=== PATIENT | female | born 1995 | race Caucasian/White ===

== ENCOUNTER 2018-04-20 20:26 | Outpatient (CLI) | END 2018-04-20 22:00 | disposition home or self-care (01) ==

== ENCOUNTER 2018-04-27 10:20 | Inpatient (IN) | END 2018-04-29 14:20 | disposition home or self-care (01) | DRG 807 ==

== ENCOUNTER 2018-06-05 15:45 | Emergency (ER) | payer MEDICAID ==
[~2018-06-05] VITALS: Wt 69.2 kg
[~2018-06-05 15:45] MED LIST: FERR1POW4 MC; IBUP-1542 PO; PREN1TAB17 PO
[2018-06-05 15:52] VITALS: BP 113/58; PULSE 132; RESP 18
[2018-06-05] MEDS ORDERED: AZIT250T PO (16:28)
[2018-06-05] MEDS ORDERED: NPH10OT BOTH EARS (16:28)
[2018-06-05] MEDS ORDERED: HYDR-4011 PO (16:28)
--- NOTE | 2018-06-05 16:30 | ERD ---
ER Documentation Chief Complaint Chief Complaint BILATERAL EAR PAIN X 3 DAYS HPI 22-year-old female with bilateral ear pain for 3 days right greater than left there is some right ear discharge. No fever no loss of hearing. Pain is constant and dull bilaterally. The patient does get occasional water in her ears ROS All systems reviewed and are negative except as per history of present illness. Medications Home Meds Active Scripts Neomycin/Polymyxin/Hydrocort* (Cortisporin* Otic) 10 Ml Susp, 4 DROP BOTH EARS QID for 7 Days, EA Prov:MARY ANNE DIAZ DO 06/05/18 Azithromycin* (Zithromax*) 250 Mg Tablet, 250 MG PO .ZPACK DIRECTED, #6 TAB TAKE 500 MG (2 TABS) THE FIRST DAY THEN 250 MG (1 TAB) DAYS 2-5 Prov:MARY ANNE DIAZ DO 06/05/18 Hydrocodone/Acetaminophen ([place] 5-325 Tablet) 1 Each Tablet, 1 TAB PO Q6H PRN for PAIN, #10 TAB Prov:MARY ANNE DIAZ DO 06/05/18 Ibuprofen* (Ibuprofen*) 600 Mg Tablet, 600 MG PO Q6, #60 TAB 0 Refills Prov:KLAUDIA ZENDEJAS MD 04/28/18 Reported Medications Ferrous Sulfate (Ferrous Sulfate) 1 Gm Powder, 1 GM MC 01/18/13 Vit-Iron Fumarate-FA ( Tablet) 1 Each Tablet, 1 EACH PO 01/18/13 Allergies Allergies: Coded Allergies: No Known Drug Allergies (Verified Allergy, Unknown, 04/27/18) PMhx/Soc History of Surgery: No Anesthesia Reaction: No Hx Neurological Disorder: No Hx Respiratory Disorders: No Hx Cardiac Disorders: Yes (htn) Hx Psychiatric Problems: No Hx Miscellaneous Medical Probl: No Hx Alcohol Use: No Hx Substance Use: No Hx Tobacco Use: Yes FmHx Family History: No coronary disease Physical Exam Vitals Vital Signs Date Temp Pulse Resp B/P (MAP) Pulse Ox O2 O2 Flow FiO2 Time Delivery Rate 06/05/18 101.3 132 18 113/58 99 15:52 (76) Physical Exam Const: No acute distress Head: Atraumatic Eyes: Normal Conjunctiva ENT: Normal External Ears, Nose and Mouth., The right EAC has discharge in the right tympanic membrane is red possible perforations unclear, left TM is also red and bulging no pus Neck: Full range of motion. No meningismus. Resp: Clear to auscultation bilaterally Cardio: Regular rate and rhythm, no murmurs Abd: Soft, non tender, non distended. Normal bowel sounds Skin: No petechiae or rashes Back: No midline or flank tenderness Ext: No cyanosis, or edema Neur: Awake and alert Psych: Normal Mood and Affect Procedures/MDM We will discharge home with Zithromax, Cortisporin otic suspension and [place] Departure Diagnosis: Primary Impression: Otitis externa Otitis externa type: unspecified type Chronicity: acute Laterality: right Qualified Codes: H60.501 - Unspecified acute noninfective otitis externa, right ear Additional Impression: Otitis media Otitis media type: unspecified Laterality: bilateral Qualified Codes: H66.93 - Otitis media, unspecified, bilateral Condition: Stable Patient Instructions: Otitis Media, Abx Tx (Adult), External Ear Infection (Adult) MARY ANNE DIAZ DO Jun 05, 2018 16:30
[2018-06-05] MEDS ORDERED: ACETAMINOPHEN 500 MG TAB PO STA (17:07)
== END 2018-06-05 17:27 | disposition home or self-care (01) ==
LOC: E/R 15:45
DX: H60.501 Unspecified acute noninfective otitis externa, right ear (principal); I10 Essential (primary) hypertension; H66.93 Otitis media, unspecified, bilateral; Z87.891 Personal history of nicotine dependence
CPT/HCPCS: 99283

== ENCOUNTER 2018-06-12 18:51 | Inpatient (IN) | payer MEDICAID ==
[~2018-06-12] VITALS: Ht 157.5 cm; Wt 69.1 kg
[~2018-06-12 18:51] MED LIST changes: +AZIT250T PO; +HYDR-4011 PO; +NPH10OT BOTH EARS
[2018-06-12 19:13] VITALS: Ht 157.5 cm; Wt 69.1 kg
[2018-06-12] MEDS ORDERED: LIDOCAINE/MYLANTA 40 ML BTL PO STA (20:41)
[2018-06-12] MEDS ORDERED: BELLADONNA/PHENOBARBITAL TAB PO STA (20:41)
[2018-06-12] MEDS ORDERED: ONDANSETRON 4 MG INJ IV PRN (23:30)
[2018-06-12] MEDS ORDERED: ACETAMINOPHEN 325 MG TAB PO PRN (23:30)
--- NOTE | 2018-06-12 23:31 | ERD ---
ER Documentation Chief Complaint Chief Complaint upper ab pain since last nite (KRYSTAL SANTOS PA-C) HPI 27-year-old female presenting with epigastric pain times 1 day. Patient had a baby 6 weeks ago. She denies any chest pain or shortness of breath. Denies fever. Had a few episodes of vomiting earlier today. States that her pain is primarily bilateral sides under the rib cage and is continuous. She took [place] at home no alleviation of symptoms. Denies medical problems. NKDA. Surgical history denies. Social history denies (KRYSTAL SANTOS PA-C) Patient correction patient is a 22-year-old female (EDGAR ROMERO DO) ROS All systems reviewed and are negative except as per history of present illness. (KRYSTAL SANTOS PA-C) Medications Home Meds Active Scripts Docusate Sodium* (Colace*) 100 Mg Capsule, 100 MG PO BID, #60 CAP Prov:KELLY BUSTOS V. BULB TESTER 06/17/18 Hydrocodone/Acetaminophen ([place] 5-325 Tablet) 1 Each Tablet, 1 TAB PO Q6H PRN for PAIN, #10 TAB Prov:MARY ANNE DIAZ DO 06/05/18 Reported Medications Vit-Iron Fumarate-FA ( Tablet) 1 Each Tablet, 1 EACH PO 01/18/13 Discontinued Reported Medications Ferrous Sulfate (Ferrous Sulfate) 1 Gm Powder, 1 GM MC 01/18/13 Discontinued Scripts Neomycin/Polymyxin/Hydrocort* (Cortisporin* Otic) 10 Ml Susp, 4 DROP BOTH EARS QID for 7 Days, EA Prov:MARY ANNE DIAZ DO 06/05/18 Azithromycin* (Zithromax*) 250 Mg Tablet, 250 MG PO .ZPACK DIRECTED, #6 TAB TAKE 500 MG (2 TABS) THE FIRST DAY THEN 250 MG (1 TAB) DAYS 2-5 Prov:MARY ANNE DIAZ DO 06/05/18 Ibuprofen* (Ibuprofen*) 600 Mg Tablet, 600 MG PO Q6, #60 TAB 0 Refills Prov:KLAUDIA ZENDEJAS MD 04/28/18 Allergies Allergies: Coded Allergies: No Known Drug Allergies (Verified Allergy, Unknown, 04/27/18) PMhx/Soc History of Surgery: Yes (csection X1, natural 1) Anesthesia Reaction: No Hx Neurological Disorder: No Hx Respiratory Disorders: No Hx Cardiac Disorders: Yes (htn) Hx Psychiatric Problems: No Hx Miscellaneous Medical Probl: No Hx Alcohol Use: No Hx Substance Use: No Hx Tobacco Use: No (KRYSTAL SANTOS PA-C) FmHx Family History: No diabetes, No coronary disease, No other (KRYSTAL SANTOS PA-C) Physical Exam Physical Exam GENERAL: The patient is well-appearing, well-nourished, in no acute distress HEENT: Atraumatic. Conjunctivae are pink. Pupils equal, round, and reactive to light. There is no scleral icterus. Tympanic membranes clear bilaterally. Oropharynx clear. NECK: C-spine is soft and supple. There is no meningismus. There is no cervical lymphadenopathy. CHEST: Clear to auscultation bilaterally. There are no rales, wheezes or rhonchi. HEART: Regular rate and rhythm. No murmurs, clicks, rubs or gallops. No S3 or S4. ABDOMEN:Soft, nontender and nondistended. Good bowel sounds. No rebound or gu arding. No gross peritonitis. No gross organomegaly or masses. Positive Cross sign, No McBurney point tenderness. (KRYSTAL SANTOS PA-C) Result Diagram: 06/16/18 0450 06/16/18 0450 Results 24 hrs Laboratory Tests Test 06/12/18 20:51 06/12/18 20:55 POC Beta HCG, Qualitative NEGATIVE White Blood Count 13.4 10^3/ul Red Blood Count 5.08 10^6/ul Hemoglobin 12.8 g/dl Hematocrit 39.8 % Mean Corpuscular Volume 78.3 fl Mean Corpuscular Hemoglobin 25.2 pg Mean Corpuscular Hemoglobin Concent 32.2 g/dl Red Cell Distribution Width 15.9 % Platelet Count 691 10^3/UL Mean Platelet Volume 8.7 fl Immature Granulocytes % 0.400 % Neutrophils % 86.2 % Lymphocytes % 9.5 % Monocytes % 3.5 % Eosinophils % 0.2 % Basophils % 0.2 % Nucleated Red Blood Cells % 0.0 /100WBC Immature Granulocytes # 0.050 10^3/ul Neutrophils # 11.6 10^3/ul Lymphocytes # 1.3 10^3/ul Monocytes # 0.5 10^3/ul Eosinophils # 0.0 10^3/ul Basophils # 0.0 10^3/ul Nucleated Red Blood Cells # 0.0 10^3/ul Pathologist Review (Hematology) YES Urine Color YELLOW Urine Clarity SLIGHTLY CLOUDY Urine pH 5.0 Urine Specific [place] 1.019 Urine Ketones 2+ mg/dL Urine Nitrite NEGATIVE mg/dL Urine Bilirubin NEGATIVE mg/dL Urine Urobilinogen NEGATIVE mg/dL Urine Leukocyte Esterase NEGATIVE Bill/ul Urine Microscopic RBC > 182 /HPF Urine Microscopic WBC 9 /HPF Urine Bacteria FEW /HPF Urine Hemoglobin 3+ mg/dL Urine Glucose NEGATIVE mg/dL Urine Total Protein 1+ mg/dl Sodium Level 138 mmol/L Potassium Level 3.7 mmol/L Chloride Level 100 mmol/L Carbon Dioxide Level 26 mmol/L Anion Gap 12 Blood Urea Nitrogen 4 mg/dl Creatinine 0.44 mg/dl Est Glomerular Filtrat Rate mL/min > 60 mL/min Glucose Level 121 mg/dl Calcium Level 9.3 mg/dl Total Bilirubin 0.0 mg/dl Direct Bilirubin 0.00 mg/dl Indirect Bilirubin 0.0 mg/dl Aspartate Amino Transf (AST/SGOT) 16 IU/L Alanine Aminotransferase (ALT/SGPT) 11 IU/L Alkaline Phosphatase 97 IU/L Total Protein 8.4 g/dl Albumin 4.2 g/dl Globulin 4.20 g/dl Albumin/Globulin Ratio 1.00 Lipase 98 U/L Current Medications Medications Dose Sig/[place]akan Start Time Status Last (Trade) Ordered Route PRN Stop Time Admin Dose Reason Admin 40 ml ONCE STAT 06/12/18 DC 06/12/18 Miscellaneous PO 20:41 06/12/18 20:59 Medication 20:43 (Gi Cocktail (2)) [place]/ 2 tab ONCE STAT 06/12/18 DC 06/12/18 Phenobarbital PO 20:41 06/12/18 21:00 () 20:43 (EDGAR ROMERO DO) Procedures/MDM DIAGNOSTIC IMAGING REPORT Patient: SHER RAMIREZ : 1995 Age: 22 Sex: F MR #: [id number] DOS: 06/12/182040 Ordering MD: REMY SANTOS PA-C Location: [facility] Room/Bed: PROCEDURE: CT abdomen and pelvis without contrast. CLINICAL INDICATION: Abdominal pain. TECHNIQUE: CT scan of the abdomen and pelvis without contrast was performed. Sagittal and coronal reformatted images were obtained from the axial source images. DICOM images are available. One or more of the following dose reduction techniques were used: Automated exposure control, adjustment of the mA and/or kV according to patient size, use of iterative reconstruction technique. CTDI = 9.57 mGy; DLP = 581.09 mGy-cm COMPARISON: None. FINDINGS: Visualized lower thorax: Incidental calcified granuloma of the bilateral lower lobes without evidence for infiltrate or suspicious nodule. There is no evidence for pleural effusion. Liver, gallbladder, pancreas and spleen: The liver is normal and size, contour and attenuation. There is no evidence for a liver mass or ductal dilatation. A few calcified gallstone some of which have internal nitrogen gas are present within the gallbladder lumen, the gallbladder is distended with abnormal wall thickening of approximately 4 mm, the combination of findings concerning for acute cholecystitis, mild pericholecystic inflammation is present No common bile duct abnormality is demonstrated. The pancreas is unremarkable. The spleen is normal in size. Adrenal glands and genitourinary system: The adrenal glands are normal bi laterally. The kidneys are normal and size, contour and attenuation with no evidence for masses, calculi or hydronephrosis. The ureters are unremarkable. No urinary bladder abnormality is demonstrated. The uterus and adnexa are unremarkable with a small amount of free fluid in the posterior cul-de-sac most likely physiologic. Gastrointestinal system: The stomach is normal in caliber with no abnormality of significance. The small bowel is normal in caliber with no ileus, obstruction or wall thickening. The appendix and surrounding fat are within the limits of normal. The colon shows no evidence for wall thickening or acute abnormality. There is no evidence for colitis or diverticulitis. Peritoneum, retroperitoneum, lymph nodes and vessels: The abdominal aorta is normal in caliber. There is no evidence for atherosclerotic calcification. The inferior vena cava is unremarkable. There is no evidence for adenopathy or mass. There is no upper abdominal ascites. No pneumoperitoneum is present Osseous structures and musculoskeletal findings: There is no fracture, lytic or blastic lesion. No muscular abnormality or soft tissue pathology is present. RPTAT:HJJR IMPRESSION: 1. The combination of findings are most concerning for acute cholecystitis. Consider follow-up evaluation with a nuclear medicine HIDA scan. 2. Small amount of free fluid in the posterior cul-de-sac is probably physiologic or possibly reactive. 3. Remainder of the examination is unremarkable. DIAGNOSTIC IMAGING REPORT Patient: SHER RAMIREZ : 1995 Age: 22 Sex: F MR #: [id number] DOS: 06/12/182040 Ordering MD: RMEY SANTOS PA-C Location: [facility] Room/Bed: PROCEDURE: US LIMITED ABDOMEN RIGHT UPPER QUADRANT CLINICAL INDICATION: Right upper quadrant pain TECHNIQUE: Multiple real-time images were acquired of the patient's right upper quadrant utilizing a high resolution transducer. COMPARISON: None FINDINGS: The pancreas is poorly visualized due to overlying bowel gas. The aorta and IVC are within normal limits. Hepatic morphology is within limits. There is normal homogeneous echotexture of the liver. The liver measures 14.2 cm in length. There is normal hepatic pedal flow of the portal vein. The gallbladder is visualized. Gallstones are noted. There appears to be a stone within the neck measuring 2.1 cm. The gallbladder wall is thickened and there is some pericholecystic fluid. The common bile duct is with normal limits measuring 4.4 mm. The right kidney measures 11.4 x 4.2 x 4.7 cm. The cortex and parenchymal with normal limits. No evidence of obstruction or hydronephrosis. IMPRESSION: 1. Gallstones, with 2.1 cm stone within the neck. There is thickening of the gallbladder wall with some pericholecystic fluid, worrisome for acute cholec ystitis. Common bile duct is within normal limits. 2. Limited visualization of the pancreas due to overlying bowel gas. ER Course: Patient was stable and will be admitted for higher level of care and surgical consultation. Patient was aware of diagnosis stable upon reevaluation. MDM: 22-year-old female presenting with epigastric pain. Patient's ultrasound findings are consistent with cholecystitis and patient will be admitted for higher level of care and surgical consultation. I have low suspicion for choledocholithiasis, cholangitis or pancreatitis. I have low suspicion for cardiac or pulmonary emergencies. I have low suspicion for other acute abdominal emergencies. Patient is admitted in stable at the time of admission. (KRYSTAL SANTOS PA-C) KRYSTAL SANTOS PA-C Jun 12, 2018 23:31 EDGAR ROMERO DO Jun 20, 2018 20:40
--- NOTE | 2018-06-12 23:57 | HP ---
Date/Time of Note Date/Time of Note DATE: 06/12/18 TIME: 23:57 Assessment/Plan VTE Prophylaxis Pharmacological prophylaxis: heparin Lines/Catheters IV Catheter Type (from Nrsg): [place] Assessment/Plan Assessment/Plan 22-year-old female who is 6 weeks presented with abdominal pain, most likely secondary to acute cholecystitis. pt also with UTI PLAN Keep n.p.o. with IV fluid IV antibiotic Awaiting surgical eval ? HIDA scan f/u urine culture results Result Diagram: 06/12/18205406/12/182054 Results 24hrs Laboratory Tests Test 06/12/18 20:51 06/12/18 20:55 POC Beta HCG, Qualitative NEGATIVE White Blood Count 13.4 #H Red Blood Count 5.08 # Hemoglobin 12.8 # Hematocrit 39.8 # Mean Corpuscular Volume 78.3 L Mean Corpuscular Hemoglobin 25.2 L Mean Corpuscular Hemoglobin Concent 32.2 Red Cell Distribution Width 15.9 H Platelet Count 691 #H Mean Platelet Volume 8.7 Immature Granulocytes % 0.400 Neutrophils % 86.2 H Lymphocytes % 9.5 L Monocytes % 3.5 Eosinophils % 0.2 Basophils % 0.2 Nucleated Red Blood Cells % 0.0 Immature Granulocytes # 0.050 H Neutrophils # 11.6 H Lymphocytes # 1.3 Monocytes # 0.5 Eosinophils # 0.0 Basophils # 0.0 Nucleated Red Blood Cells # 0.0 Urine Color YELLOW Urine Clarity SLIGHTLY CLOUDY A Urine pH 5.0 Urine Specific [place] 1.019 Urine Ketones 2+ H Urine Nitrite NEGATIVE Urine Bilirubin NEGATIVE Urine Urobilinogen NEGATIVE Urine Leukocyte Esterase NEGATIVE Urine Microscopic RBC > 182 H Urine Microscopic WBC 9 H Urine Bacteria FEW A Urine Hemoglobin 3+ H Urine Glucose NEGATIVE Urine Total Protein 1+ H Sodium Level 138 Potassium Level 3.7 Chloride Level 100 Carbon Dioxide Level 26 Anion Gap 12 Blood Urea Nitrogen 4 L Creatinine 0.44 Est Glomerular Filtrat Rate mL/min > 60 Glucose Level 121 Calcium Level 9.3 Total Bilirubin 0.0 L Direct Bilirubin 0.00 Indirect Bilirubin 0.0 Aspartate Amino Transf (AST/SGOT) 16 Alanine Aminotransferase (ALT/SGPT) 11 L Alkaline Phosphatase 97 Total Protein 8.4 H Albumin 4.2 Globulin 4.20 H Albumin/Globulin Ratio 1.00 Lipase 98 HPI/ROS Admit Date/Time Admit Date/Time Hx of Present Illness This is a 22-year-old female who is 6 weeks who presented to the ER complaining of abdominal pain. Symptoms been going on for about a day or 2. Pain is mainly localized in the right upper quadrant and also in the epigastric area. And presented to ER, abdominal ultrasound and CT abdomen/pelvis was a finding worrisome for acute cholecystitis. Initial WBC about 13,000. Patient afebrile. PMH/Family/Social Past Medical History PMH/Family/Social Past Medical History Medical History: other (see hpi) Coded Allergies: No Known Drug Allergy (Verified Allergy, Unknown, 01/24/16) Past Surgical History Past Surgical Hx: other (see hpi) Family History Significant Family History: no pertinent family hx Social History Alcohol Use: other Smoking Status: Unknown if ever smoked Drug Use: other Medications Current Medications Ondansetron HCl (Zofran Inj) 4 mg BRIDGE ORDER PRN IV NAUSEA AND/OR VOMITING; Start 06/12/18 at 23:30; Stop 06/13/18 at 23:29 Acetaminophen (Tylenol Tab) 650 mg ER BRIDGE PRN PO MILD PAIN(1-3)OR ELEVATED TEMP; Start 06/12/18 at 23:30; Stop 06/13/18 at 23:29 Coded Allergies: No Known Drug Allergies (Verified Allergy, Unknown, 04/27/18) Social History Smoking Status: Never smoker Exam/Review of Systems Vital Signs Vitals Vital Signs Date Temp Pulse Resp B/P (MAP) Pulse Ox O2 O2 Flow FiO2 Time Delivery Rate 06/12/18 98.3 57 18 118/68 99 Room Air 23:28 (85) Exam Constitutional: alert, oriented, well developed Head: normocephalic, atraumatic Eyes: EOMI, PERRL Respiratory: clear to auscultation, normal air movement Cardiovascular: regular rate and rhythm, nl pulses Gastrointestinal: soft, other (Tender to palpation in the right upper quadrant area with minimal guarding. No rigidity no rebound tenderness) Extremities: normal pulses FREDY STOVER MD Jun 12, 2018 23:57
[2018-06-13] MEDS ORDERED: ONDANSETRON 4 MG INJ IV PRN (00:30)
[2018-06-13] MEDS ORDERED: NACL 0.9% 3 ML SYG IV SCH (00:30)
[2018-06-13] MEDS ORDERED: morphine 2 MG INJ IV PRN (00:30)
[2018-06-13] MEDS: PIPER-TAZO 3.375 GM IV (PMX) 100 ML IVPB SCH ×4 (01:09→18:06)
[2018-06-13] MEDS: DEXTROSE 5%-0.45% NACL 1,000 ML IV SCH ×4 (01:10→22:27)
[2018-06-13 02:50] VITALS: BP 118/75; PULSE 77; RESP 20
[2018-06-13] MEDS: morphine SULFATE/PF (2 MG/2 ML) SYG IV PRN ×4 (03:42→23:24)
[2018-06-13 07:12] VITALS: BP 109/68; PULSE 97; RESP 16
[2018-06-13] MEDS: FAMOTIDINE 20 MG INJ IV SCH ×2 (09:12→21:05)
--- NOTE | 2018-06-13 10:54 | PN ---
Date/Time of Note Date/Time of Note DATE: 06/13/18 TIME: 10:52 Assessment/Plan VTE Prophylaxis SCD applied (from Nsg): Yes Pharmacological prophylaxis: NA/contraindicated Pharm contraindication: low risk/ambulating Lines/Catheters IV Catheter Type (from Nrsg): Peripheral IV Assessment/Plan Hospital Course SUBJECTIVE: Lying in bed comfortably. No fevers. Continue to have right upper quadrant abdominal pain 7 out of 10 currently. OBJECTIVE: Vital signs-see below PHYSICAL EXAM: Constitutional: Well-developed, adequately built, lying in bed comfortably. Psych: nl mood/affect, no complaints Head: atraumatic, normocephalic Eyes: nl conjunctiva, nl sclera ENMT: mucosa pink and moist, nl external ears & nose Neck: non-tender, supple Respiratory: clear to auscultation, normal air movement Cardiovascular: nl pulses, regular rate and rhythm Gastrointestinal: Tenderness to RUQ. No rebound tenderness. Abdomen soft, bowel sounds active in all 4 quadrants. Musculoskeletal/extremities: nl extremities to inspection, motor strength equal bilaterally, no focal deficit. Normal pulses,no cyanosis, no edema. Neurological: Alert oriented 3,nl speech, nl strength Skin: nl turgor ASSESSMENT/PLAN: 22-year-old female who is 6 weeks /vaginal delivery, presenting with 2-day duration of right upper quadrant abdominal pain, found to have possible acute cholecystitis. 1. Cholelithiasis with possible cholecystitis. -CT reviewed. Patient with normal LFTs. I will order a HIDA scan to rule out cholecystitis. -Surgery consult has been called. -Keep n.p.o., IV fluids, antibiotics, PRN pain control. DVT prophylaxis: SCDs PUD prophylaxis: Pepcid CODE STATUS: Full code Diet: N.p.o. Disposition: Continue current medical management. Patient with no symptoms of UTI. UA with no leukocyte esterase or nitrates. However, I have also added a urine culture to the specimen drawn for UA. Patient was seen in collaboration with Dr. Hardin. Result Diagram: 06/13/187 06/13/187 Results 24hrs Laboratory Tests Test 06/12/18 20:51 06/12/18 20:55 06/13/18 04:37 POC Beta HCG, Qualitative NEGATIVE White Blood Count 13.4 #H 13.8 H Red Blood Count 5.08 # 4.49 Hemoglobin 12.8 # 11.3 L Hematocrit 39.8 # 34.9 L Mean Corpuscular Volume 78.3 L 77.7 L Mean Corpuscular Hemoglobin 25.2 L 25.2 L Mean Corpuscular 32.2 32.4 Hemoglobin Concent Red Cell Distribution Width 15.9 H 16.2 H Platelet Count 691 #H 579 H Mean Platelet Volume 8.7 8.8 Immature Granulocytes % 0.400 0.400 Neutrophils % 86.2 H 84.6 H Lymphocytes % 9.5 L 8.1 L Monocytes % 3.5 6.4 Eosinophils % 0.2 0.3 Basophils % 0.2 0.2 Nucleated Red Blood Cells % 0.0 0.0 Immature Granulocytes # 0.050 H 0.060 H Neutrophils # 11.6 H 11.7 H Lymphocytes # 1.3 1.1 Monocytes # 0.5 0.9 Eosinophils # 0.0 0.0 Basophils # 0.0 0.0 Nucleated Red Blood Cells # 0.0 0.0 Urine Color YELLOW Urine Clarity SLIGHTLY CLOUDY A Urine pH 5.0 Urine Specific [place] 1.019 Urine Ketones 2+ H Urine Nitrite NEGATIVE Urine Bilirubin NEGATIVE Urine Urobilinogen NEGATIVE Urine Leukocyte Esterase NEGATIVE Urine Microscopic RBC > 182 H Urine Microscopic WBC 9 H Urine Bacteria FEW A Urine Hemoglobin 3+ H Urine Glucose NEGATIVE Urine Total Protein 1+ H Sodium Level 138 138 Potassium Level 3.7 3.5 Chloride Level 100 99 Carbon Dioxide Level 26 28 Anion Gap 12 11 Blood Urea Nitrogen 4 L 4 L Creatinine 0.44 0.42 L Est Glomerular Filtrat > 60 > 60 Rate mL/min Glucose Level 121 180 Calcium Level 9.3 8.7 Total Bilirubin 0.0 L 0.2 Direct Bilirubin 0.00 0.00 Indirect Bilirubin 0.0 0.2 Aspartate Amino 16 24 Transf (AST/SGOT) Alanine 11 L 15 Aminotransferase (ALT/SGPT) Alkaline Phosphatase 97 76 Total Protein 8.4 H 7.2 # Albumin 4.2 3.6 Globulin 4.20 H 3.60 H Albumin/Globulin Ratio 1.00 1.00 Lipase 98 Phosphorus Level 3.5 Magnesium Level 2.0 Exam/Review of Systems Vital Signs Vitals Vital Signs Date Temp Pulse Resp B/P (MAP) Pulse Ox O2 O2 Flow FiO2 Time Delivery Rate 06/13/18 98.5 97 16 109/68 100 Room Air 07:12 (82) Intake and Output 06/12/18 06/12/18 06/13/18 1515:00 23:00 07:00 IntakeIntake Total 700 ml BalanceBalance 700 ml Medications Medications Current Medications Ondansetron HCl (Zofran Inj) 4 mg BRIDGE ORDER PRN IV NAUSEA AND/OR VOMITING; Start 06/12/18 at 23:30; Stop 06/13/18 at 23:29 Acetaminophen (Tylenol Tab) 650 mg ER BRIDGE PRN PO MILD PAIN(1-3)OR ELEVATED TEMP; Start 06/12/18 at 23:30; Stop 06/13/18 at 23:29 Dextrose/Sodium Chloride 1,000 ml @ 120 mls/hr Q8H20M IV Last administered on 06/13/18at 09:12; Admin Dose 120 MLS/HR; Start 06/13/18 at 00:09 IV Flush (NS 3 ml) 3 ml PER PROTOCOL IV ; Start 06/13/18 at 00:30 Ondansetron HCl (Zofran Inj) 4 mg Q6H PRN IV NAUSEA AND/OR VOMITING; Start 06/13/18 at 00:30 Famotidine (Pepcid Iv) 20 mg Q12 IV Last administered on 06/13/18at 09:12; Admin Dose 20 MG; Start 06/13/18 at 09:00 Piperacillin Sod/ Tazobactam Sod 100 ml @ 200 mls/hr Q6H IVPB Last administered on 06/13/18at 05:41; Admin Dose 200 MLS/HR; Start 06/13/18 at 00:30 Morphine Sulfate (morphine SULFATE (PF)) 2 mg Q4H PRN IV SEVERE PAIN LEVEL 7-10 Last administered on 06/13/18at 09:12; Admin Dose 2 MG; Start 06/13/18 at 03:37 KELLY BUSTOS NP Jun 13, 2018 10:53
--- NOTE | 2018-06-13 13:22 | CONS ---
Date/Time of Note Date/Time of Note DATE: 06/13/18 TIME: 13:16 Assessment/Plan Assessment/Plan Assessment/Plan 1. Cholelithiasis, possible cholecystitis -Antibiotics -HIDA scan> pending 2. Abdominal pain: Likely 2/2 #1 -Pain management 3. Nausea vomiting: -Antiemetics as needed 4. Leukocytosis: 2/2 #1 -As above 5. Microcytic hypochromic anemia: -Monitor and transfuse as needed 6. Thrombocytosis: -Treat infections -Trend 7. Pyuria: -frequent bladder emptying -Follow urine cultures Thank you. Patient seen and examined in collaboration with Dr. Deshawn Willson. Result Diagram: 06/13/18 0437 06/13/18 0437 Results 24hrs Laboratory Tests Test 06/12/18 20:51 06/12/18 20:55 06/13/18 04:37 POC Beta HCG, Qualitative NEGATIVE White Blood Count 13.4 #H 13.8 H Red Blood Count 5.08 # 4.49 Hemoglobin 12.8 # 11.3 L Hematocrit 39.8 # 34.9 L Mean Corpuscular Volume 78.3 L 77.7 L Mean Corpuscular Hemoglobin 25.2 L 25.2 L Mean Corpuscular 32.2 32.4 Hemoglobin Concent Red Cell Distribution Width 15.9 H 16.2 H Platelet Count 691 #H 579 H Mean Platelet Volume 8.7 8.8 Immature Granulocytes % 0.400 0.400 Neutrophils % 86.2 H 84.6 H Lymphocytes % 9.5 L 8.1 L Monocytes % 3.5 6.4 Eosinophils % 0.2 0.3 Basophils % 0.2 0.2 Nucleated Red Blood Cells % 0.0 0.0 Immature Granulocytes # 0.050 H 0.060 H Neutrophils # 11.6 H 11.7 H Lymphocytes # 1.3 1.1 Monocytes # 0.5 0.9 Eosinophils # 0.0 0.0 Basophils # 0.0 0.0 Nucleated Red Blood Cells # 0.0 0.0 Urine Color YELLOW Urine Clarity SLIGHTLY CLOUDY A Urine pH 5.0 Urine Specific [place] 1.019 Urine Ketones 2+ H Urine Nitrite NEGATIVE Urine Bilirubin NEGATIVE Urine Urobilinogen NEGATIVE Urine Leukocyte Esterase NEGATIVE Urine Microscopic RBC > 182 H Urine Microscopic WBC 9 H Urine Bacteria FEW A Urine Hemoglobin 3+ H Urine Glucose NEGATIVE Urine Total Protein 1+ H Sodium Level 138 138 Potassium Level 3.7 3.5 Chloride Level 100 99 Carbon Dioxide Level 26 28 Anion Gap 12 11 Blood Urea Nitrogen 4 L 4 L Creatinine 0.44 0.42 L Est Glomerular Filtrat > 60 > 60 Rate mL/min Glucose Level 121 180 Calcium Level 9.3 8.7 Total Bilirubin 0.0 L 0.2 Direct Bilirubin 0.00 0.00 Indirect Bilirubin 0.0 0.2 Aspartate Amino 16 24 Transf (AST/SGOT) Alanine 11 L 15 Aminotransferase (ALT/SGPT) Alkaline Phosphatase 97 76 Total Protein 8.4 H 7.2 # Albumin 4.2 3.6 Globulin 4.20 H 3.60 H Albumin/Globulin Ratio 1.00 1.00 Lipase 98 Hemoglobin A1c 5.3 Phosphorus Level 3.5 Magnesium Level 2.0 Consultation Date/Type/Reason Admit Date/Time Date of Consultation: Jun 13, 2018 Type of Consult surgical Reason for Consultation surgical Requesting Provider: FREDY STOVER MD Hx of Present Illness Viviane Joseph is a 27-year-old woman who presents with epigastric pain for 1 day. Abdominal pain is described as strong, persistent and sharp, bilateral sides under the rib cage. Associate symptoms include vomiting. She denies any chest pain or shortness of breath, fever.imaging shows Gallstones, with 2.1 cm stone within the neck with thickening of the gallbladder wall with some pericholecystic fluid. Laboratory findings shows leukocytosis. General surgery was asked to evaluate. 12 point ros was performed and is negative except as stated in hpi Past Medical History overweight Medications Current Medications Ondansetron HCl (Zofran Inj) 4 mg BRIDGE ORDER PRN IV NAUSEA AND/OR VOMITING; Start 06/12/18 at 23:30; Stop 06/13/18 at 23:29 Acetaminophen (Tylenol Tab) 650 mg ER BRIDGE PRN PO MILD PAIN(1-3)OR ELEVATED TEMP; Start 06/12/18 at 23:30; Stop 06/13/18 at 23:29 Dextrose/Sodium Chloride 1,000 ml @ 120 mls/hr Q8H20M IV Last administered on 06/13/18at 09:12; Admin Dose 120 MLS/HR; Start 06/13/18 at 00:09 IV Flush (NS 3 ml) 3 ml PER PROTOCOL IV ; Start 06/13/18 at 00:30 Ondansetron HCl (Zofran Inj) 4 mg Q6H PRN IV NAUSEA AND/OR VOMITING; Start 06/13/18 at 00:30 Famotidine (Pepcid Iv) 20 mg Q12 IV Last administered on 06/13/18at 09:12; Admin Dose 20 MG; Start 06/13/18 at 09:00 Piperacillin Sod/ Tazobactam Sod 100 ml @ 200 mls/hr Q6H IVPB Last administered on 06/13/18at 12:19; Admin Dose 200 MLS/HR; Start 06/13/18 at 00:30 Morphine Sulfate (morphine SULFATE (PF)) 2 mg Q4H PRN IV SEVERE PAIN LEVEL 7-10 Last administered on 06/13/18at 09:12; Admin Dose 2 MG; Start 06/13/18 at 03:37 Allergies: Coded Allergies: No Known Drug Allergies (Verified Allergy, Unknown, 04/27/18) Family History Significant Family History: no pertinent family hx Social History Smoking Status: Never smoker Exam/Review of Systems Vital Signs Vitals Vital Signs Date Temp Pulse Resp B/P (MAP) Pulse Ox O2 O2 Flow FiO2 Time Delivery Rate 06/13/18 98.5 97 16 109/68 100 Room Air 07:12 (82) Intake and Output 06/12/18 06/12/18 06/13/18 1515:00 23:00 07:00 IntakeIntake Total 700 ml BalanceBalance 700 ml Exam Constitutional: alert, oriented, well developed Psych: nl mood/affect; No anxiety Head: normocephalic, atraumatic Eyes: nl conjunctiva, EOMI, nl sclera; No icteric ENMT: nl lips & teeth Neck: supple; No jvd Respiratory: normal air movement; No congested cough, No labored breathing Cardiovascular: regular rate and rhythm, nl pulses; No edema Gastrointestinal: soft, non-tender, distended (Minimal), tender (Right upper quadrant) Genitourinary - Female: nl external genitalia Musculoskeletal: nl extremities to inspection, nl gait and stance, muscle tone Extremities: normal pulses; No edema Neurological: nl mental status, nl speech, nl strength Skin: No rash or lesions Medications Medications Current Medications Ondansetron HCl (Zofran Inj) 4 mg BRIDGE ORDER PRN IV NAUSEA AND/OR VOMITING; Start 06/12/18 at 23:30; Stop 06/13/18 at 23:29 Acetaminophen (Tylenol Tab) 650 mg ER BRIDGE PRN PO MILD PAIN(1-3)OR ELEVATED TEMP; Start 06/12/18 at 23:30; Stop 06/13/18 at 23:29 Dextrose/Sodium Chloride 1,000 ml @ 120 mls/hr Q8H20M IV Last administered on 06/13/18at 09:12; Admin Dose 120 MLS/HR; Start 06/13/18 at 00:09 IV Flush (NS 3 ml) 3 ml PER PROTOCOL IV ; Start 06/13/18 at 00:30 Ondansetron HCl (Zofran Inj) 4 mg Q6H PRN IV NAUSEA AND/OR VOMITING; Start 06/13/18 at 00:30 Famotidine (Pepcid Iv) 20 mg Q12 IV Last administered on 06/13/18at 09:12; Admin Dose 20 MG; Start 06/13/18 at 09:00 Piperacillin Sod/ Tazobactam Sod 100 ml @ 200 mls/hr Q6H IVPB Last administered on 06/13/18at 12:19; Admin Dose 200 MLS/HR; Start 06/13/18 at 00:30 Morphine Sulfate (morphine SULFATE (PF)) 2 mg Q4H PRN IV SEVERE PAIN LEVEL 7-10 Last administered on 06/13/18at 09:12; Admin Dose 2 MG; Start 06/13/18 at 03:37 YOSELIN RECIO NP Jun 13, 2018 13:22
[2018-06-13 14:35] VITALS: BP 110/75; PULSE 104; RESP 14
[2018-06-13 19:13] VITALS: BP 112/65; PULSE 72; RESP 16
[2018-06-14] MEDS: PIPER-TAZO 3.375 GM IV (PMX) 100 ML IVPB SCH ×5 (00:18→23:08)
[2018-06-14 01:40] VITALS: BP 107/67; PULSE 108; RESP 16
[2018-06-14] MEDS: morphine SULFATE/PF (2 MG/2 ML) SYG IV PRN ×4 (03:32→20:57)
[2018-06-14] MEDS ORDERED: ACETAMINOPHEN 1000MG/100ML IV 100 ML IVPB ONE (06:00)
[2018-06-14 08:12] VITALS: BP 91/60; PULSE 91; RESP 16
[2018-06-14] MEDS ORDERED: POTASSIUM CHLORIDE (SR) 20 MEQ TAB PO STA (09:42)
--- NOTE | 2018-06-14 09:50 | PN ---
Date/Time of Note Date/Time of Note DATE: 06/14/18 TIME: 09:46 Assessment/Plan VTE Prophylaxis Risk score (from Ns)>0 risk: 2 SCD applied (from Ns): Yes Pharmacological prophylaxis: NA/contraindicated Pharm contraindication: low risk/ambulating Lines/Catheters [facility] (from [facility]): Peripheral IV Assessment/Plan Hospital Course SUBJECTIVE: Patient with fevers. With RUQ pain. OBJECTIVE: Vital signs-see below PHYSICAL EXAM: Constitutional: Well-developed, adequately built, lying in bed comfortably. Psych: nl mood/affect, no complaints Head: atraumatic, normocephalic Eyes: nl conjunctiva, nl sclera ENMT: mucosa pink and moist, nl external ears & nose Neck: non-tender, supple Respiratory: clear to auscultation, normal air movement Cardiovascular: nl pulses, regular rate and rhythm Gastrointestinal: Tenderness to RUQ. No rebound tenderness. Abdomen soft, bow el sounds active in all 4 quadrants. Musculoskeletal/extremities: nl extremities to inspection, motor strength equal bilaterally, no focal deficit. Normal pulses,no cyanosis, no edema. Neurological: Alert oriented 3,nl speech, nl strength Skin: nl turgor ASSESSMENT/PLAN: 22-year-old female who is 6 weeks /vaginal delivery, presenting with 2-day duration of right upper quadrant abdominal pain, found to have acute cholecystitis. 1. Acute calculus cholecystitis with cystic duct obstruction. -Symptomatology/HIDA scan/CT scan consistent with above. -Patient with fevers/leukocytosis/+Cross sign=>warrant surgical intervention. -Surgery following-timing/scheduling per surgery -Continue broad-spectrum antibiotics. 2. Sepsis Source: Intra-abdominal with a #1 -Management as above. Obtain a lactate level and blood cultures. DVT prophylaxis: SCDs PUD prophylaxis: Pepcid CODE STATUS: Full code Diet: N.p.o. Disposition: Continue broad-spectrum antimicrobials. Follow-up surgery recommendations. Patient was seen in collaboration with Dr. Flores. Result Diagram: 06/14/1842706/14/18427 Results 24hrs Laboratory Tests Test 06/14/18 04:28 White Blood Count 15.8 H Red Blood Count 4.26 Hemoglobin 10.8 L Hematocrit 33.4 L Mean Corpuscular Volume 78.4 L Mean Corpuscular Hemoglobin 25.4 L Mean Corpuscular Hemoglobin Concent 32.3 Red Cell Distribution Width 16.8 H Platelet Count 518 H Mean Platelet Volume 8.9 Immature Granulocytes % 0.400 Neutrophils % 80.0 H Lymphocytes % 9.7 L Monocytes % 9.1 Eosinophils % 0.5 Basophils % 0.3 Nucleated Red Blood Cells % 0.0 Immature Granulocytes # 0.070 H Neutrophils # 12.6 H Lymphocytes # 1.5 Monocytes # 1.4 H Eosinophils # 0.1 Basophils # 0.0 Nucleated Red Blood Cells # 0.0 Sodium Level 139 Potassium Level 3.4 L Chloride Level 102 Carbon Dioxide Level 25 Anion Gap 12 Blood Urea Nitrogen 2 L Creatinine 0.48 Est Glomerular Filtrat Rate mL/min > 60 Glucose Level 137 # Calcium Level 8.2 L Phosphorus Level 2.9 Magnesium Level 2.2 Total Bilirubin 0.3 Direct Bilirubin 0.00 Indirect Bilirubin 0.3 Aspartate Amino Transf (AST/SGOT) 14 L Alanine Aminotransferase (ALT/SGPT) 14 Alkaline Phosphatase 77 Total Protein 6.5 Albumin 3.1 L Globulin 3.40 H Albumin/Globulin Ratio 0.91 Exam/Review of Systems Vital Signs Vitals Vital Signs Date Temp Pulse Resp B/P (MAP) Pulse Ox O2 O2 Flow FiO2 Time Delivery Rate 06/14/18 98.9 91 16 91/60 (70) 98 Room Air 08:12 Intake and Output 06/13/18 06/13/18 06/14/18 1515:00 23:00 07:00 IntakeIntake Total 700 ml 1100 ml 2120 ml BalanceBalance 700 ml 1100 ml 2120 ml Medications Medications Current Medications Dextrose/Sodium Chloride 1,000 ml @ 120 mls/hr Q8H20M IV Last administered on 06/13/18at 22:27; Admin Dose 120 MLS/HR; Start 06/13/18 at 00:09 IV Flush (NS 3 ml) 3 ml PER PROTOCOL IV ; Start 06/13/18 at 00:30 Ondansetron HCl (Zofran Inj) 4 mg Q6H PRN IV NAUSEA AND/OR VOMITING; Start 06/13/18 at 00:30 Famotidine (Pepcid Iv) 20 mg Q12 IV Last administered on 06/13/18at 21:05; Admin Dose 20 MG; Start 06/13/18 at 09:00 Piperacillin Sod/ Tazobactam Sod 100 ml @ 200 mls/hr Q6H IVPB Last administered on 06/14/18at 06:20; Admin Dose 200 MLS/HR; Start 06/13/18 at 00:30 Morphine Sulfate (morphine SULFATE (PF)) 2 mg Q4H PRN IV SEVERE PAIN LEVEL 7-10 Last administered on 06/14/18at 03:32; Admin Dose 2 MG; Start 06/13/18 at 03:37 Sodium Chloride 500 ml @ 500 mls/hr Q1H ONCE IV ; Start 06/14/18 at 10:00; Stop 06/14/18 at 10:59; Status UNV Potassium Chloride (Klor-Con 20) 40 meq ONCE STAT PO ; Start 06/14/18 at 09:42; Stop 06/14/18 at 09:43; Status UNV KELLY BUSTOS NP Jun 14, 2018 09:50
[2018-06-14] MEDS: FAMOTIDINE 20 MG INJ IV SCH ×2 (09:53→20:54)
[2018-06-14] MEDS: SOD CHLORIDE 0.9% 1,000 ML IV SCH ×2 (09:54→20:55)
[2018-06-14] MEDS ORDERED: SOD CHLORIDE 0.9% 500 ML IV ONE (10:00)
--- NOTE | 2018-06-14 12:10 | PN ---
Date/Time of Note Date/Time of Note DATE: 06/14/18 TIME: 12:07 Assessment/Plan Lines/Catheters IV Catheter Type (from Nrsg): Peripheral IV Assessment/Plan Assessment/Plan 1. Cholelithiasis, possible cholecystitis: HIDA scan noted -Antibiotics -OR tomorrow -N.p.o. after midnight 2. Abdominal pain: Likely 2/2 #1 -Pain management 3. Nausea vomiting: -Antiemetics as needed 4. Leukocytosis: 2/2 #1: uptrending -As above 5. Microcytic hypochromic anemia: -Monitor and transfuse as needed 6. Thrombocytosis: -Treat infections -Trend 7. Pyuria: -frequent bladder emptying -Follow urine cultures Thank you. Patient seen and examined in collaboration with Dr. Deshawn Willson. Subjective 24 Hr Interval Summary Right upper quadrant abdominal pain. HIDA noted. Low-grade fever. Tachycardia. No fevers, chills, sob, congested cough, cp, palpitations, ho, dizziness, nausea, vomiting, diarrhea, dysuria. Exam/Review of Systems Vital Signs Vitals Vital Signs Date Temp Pulse Resp B/P (MAP) Pulse Ox O2 O2 Flow FiO2 Time Delivery Rate 06/14/18 98.9 91 16 91/60 (70) 98 Room Air 08:12 Intake and Output 06/13/18 06/13/18 06/14/18 1515:00 23:00 07:00 IntakeIntake Total 700 ml 1100 ml 2120 ml BalanceBalance 700 ml 1100 ml 2120 ml Exam Free Text/Dictation Constitutional: alert, oriented, well developed Psych: nl mood/affect; No anxiety Head: normocephalic, atraumatic Eyes: nl conjunctiva, EOMI, nl sclera; No icteric ENMT: nl lips & teeth Neck: supple; No jvd Respiratory: normal air movement; No congested cough, No labored breathing Cardiovascular: regular rate and rhythm, nl pulses; No edema Gastrointestinal: soft, non-tender, distended (Minimal), tender (Right upper quadrant) Genitourinary - Female: nl external genitalia Musculoskeletal: nl extremities to inspection, nl gait and stance, muscle tone Extremities: normal pulses; No edema Neurological: nl mental status, nl speech, nl strength Skin: No rash or lesions Results Result Diagram: 06/14/18 0428 06/14/18 0428 YOSELIN RECIO NP Jun 14, 2018 12:10
[2018-06-14 14:34] VITALS: BP 99/66; PULSE 109; RESP 18
[2018-06-14 19:07] VITALS: BP 103/73; PULSE 107; RESP 16
[2018-06-15] VITALS (26 sets, daily range): BP systolic 93–155; BP diastolic 51–79; PULSE 82–134; RESP 16–27
[2018-06-15] MEDS: morphine SULFATE/PF (2 MG/2 ML) SYG IV PRN ×3 (01:03→09:03)
[2018-06-15] MEDS: PIPER-TAZO 3.375 GM IV (PMX) 100 ML IVPB SCH ×3 (05:31→23:49)
[2018-06-15] MEDS ORDERED: ROCURONIUM 50 MG INJ ONE (07:00)
[2018-06-15] MEDS ORDERED: DESFLURANE 15 MIN ONE (07:00)
[2018-06-15] MEDS: FAMOTIDINE 20 MG INJ IV SCH ×2 (08:37→20:43)
[2018-06-15] MEDS: SOD CHLORIDE 0.9% 1,000 ML IV SCH ×3 (10:20→23:30)
--- NOTE | 2018-06-15 10:57 | PN ---
Date/Time of Note Date/Time of Note DATE: 06/15/18 TIME: 10:55 Assessment/Plan VTE Prophylaxis Risk score (from Ns)>0 risk: 1 SCD applied (from Ns): Yes Pharmacological prophylaxis: NA/contraindicated Pharm contraindication: low risk/ambulating Lines/Catheters [facility]): Peripheral IV Assessment/Plan Hospital Course SUBJECTIVE: Patient still with low-grade fevers, RUQ pain. She is scheduled for laparoscopic cholecystectomy at 1 PM. OBJECTIVE: Vital signs-see below PHYSICAL EXAM: Constitutional: Well-developed, adequately built, lying in bed comfortably. Psych: nl mood/affect, no complaints Head: atraumatic, normocephalic Eyes: nl conjunctiva, nl sclera ENMT: mucosa pink and moist, nl external ears & nose Neck: non-tender, supple Respiratory: clear to auscultation, normal air movement Cardiovascular: nl pulses, regular rate and rhythm Gastrointestinal: Tenderness to RUQ. No rebound tenderness. Abdomen soft, bowel sounds active in all 4 quadrants. Musculoskeletal/extremities: nl extremities to inspection, motor strength equal bilaterally, no focal deficit. Normal pulses,no cyanosis, no edema. Neurological: Alert oriented 3,nl speech, nl strength Skin: nl turgor ASSESSMENT/PLAN: 22-year-old female who is 6 weeks /vaginal delivery, presenting with 2-day duration of right upper quadrant abdominal pain, found to have acute cholecystitis. 1. Acute calculus cholecystitis with cystic duct obstruction. -For lap versus open cholecystectomy this afternoon -Continue ABX, postoperative management per surgery. 2. Sepsis Source: Intra-abdominal with a #1 -Clinically improving. Continue antibiotics and follow-up cultures. Patient with no signs of UTI. Her urine culture is showing contamination. DVT prophylaxis: SCDs PUD prophylaxis: Pepcid CODE STATUS: Full code Diet: N.p.o. Disposition: Continue broad-spectrum antimicrobials. Postoperative management per surgery. Patient was seen in collaboration with Dr. Flores. Result Diagram: 06/15/18 0433 06/15/18 0433 Results 24hrs Laboratory Tests Test 06/15/18 04:33 White Blood Count 14.0 H Red Blood Count 4.06 L Hemoglobin 10.2 L Hematocrit 32.5 L Mean Corpuscular Volume 80.0 L Mean Corpuscular Hemoglobin 25.1 L Mean Corpuscular Hemoglobin Concent 31.4 L Red Cell Distribution Width 17.1 H Platelet Count 503 H Mean Platelet Volume 8.8 Immature Granulocytes % 0.500 H Neutrophils % 75.7 Lymphocytes % 15.3 Monocytes % 6.9 Eosinophils % 1.4 Basophils % 0.2 Nucleated Red Blood Cells % 0.0 Immature Granulocytes # 0.070 H Neutrophils # 10.6 H Lymphocytes # 2.1 Monocytes # 1.0 H Eosinophils # 0.2 Basophils # 0.0 Nucleated Red Blood Cells # 0.0 Sodium Level 141 Potassium Level 3.2 L Chloride Level 104 Carbon Dioxide Level 25 Anion Gap 12 Blood Urea Nitrogen 3 L Creatinine 0.53 Est Glomerular Filtrat Rate mL/min > 60 Glucose Level 101 Calcium Level 8.1 L Exam/Review of Systems Vital Signs Vitals Vital Signs Date Temp Pulse Resp B/P (MAP) Pulse Ox O2 O2 Flow FiO2 Time Delivery Rate 06/15/18 100.8 118 16 105/63 100 Room Air 00:55 (77) Intake and Output 06/14/18 06/14/18 06/15/18 1515:00 23:00 07:00 IntakeIntake Total 600 ml 1090 ml 1840 ml OutputOutput Total 680 ml BalanceBalance 600 ml 410 ml 1840 ml Medications Medications Current Medications IV Flush (NS 3 ml) 3 ml PER PROTOCOL IV ; Start 06/13/18 at 00:30 Ondansetron HCl (Zofran Inj) 4 mg Q6H PRN IV NAUSEA AND/OR VOMITING; Start 06/13/18 at 00:30 Famotidine (Pepcid Iv) 20 mg Q12 IV Last administered on 06/15/18at 08:37; Admin Dose 20 MG; Start 06/13/18 at 09:00 Piperacillin Sod/ Tazobactam Sod 100 ml @ 200 mls/hr Q6H IVPB Last administered on 06/15/18 05:31; Admin Dose 200 MLS/HR; Start 06/13/18 at 00:30 Morphine Sulfate (morphine SULFATE (PF)) 2 mg Q4H PRN IV SEVERE PAIN LEVEL 7-10 Last administered on 06/15/18 09:03; Admin Dose 2 MG; Start 06/13/18 at 03:37 Sodium Chloride 1,000 ml @ 80 mls/hr [id number] IV Last administered on 06/15/18at 10:20; Admin Dose 80 MLS/HR; Start 06/14/18 at 10:00 Potassium Chloride 100 ml @ 50 mls/hr Q2H IVPB ; Start 06/15/18 at 11:00; Stop 06/15/18 at 14:59 KELLY BUSTOS NP Jun 15, 2018 10:57
[2018-06-15] MEDS: POTASSIUM CHLORIDE 100 ML IVPB SCH ×2 (11:59→18:13)
[2018-06-15] MEDS ORDERED: LIDOCAINE 2% (MDV) 20 ML INJ ONE (13:08)
[2018-06-15] MEDS ORDERED: BUPIVACAINE 0.5%/EPI (SDV) 30 ML INJ ONE (13:08)
--- NOTE | 2018-06-15 13:20 | PREAC ---
Date/Time of Note Date/Time of Note DATE: 06/15/18 TIME: : Anesthesia Eval and Record Evaluation Time Pre-Procedure Interview DATE: 06/15/18 TIME: 13:19 Age 22 Sex female NPO: 8 hrs Preoperative diagnosis cholecystitis Planned procedure Laparoscopic cholecystectomy Past Medical History Past Medical History: None ( 6 weeks ) Surgery & Anesthesia Issues No known issue Meds Anticoagulation: No Beta [place] within 24 hr: No Reason Beta [place] not given: Pt. not on B-[place] Active Scripts Neomycin/Polymyxin/Hydrocort* (Cortisporin* Otic) 10 Ml Susp, 4 DROP BOTH EARS QID for 7 Days, EA Prov:MARY ANNE DIAZ DO 06/05/18 Azithromycin* (Zithromax*) 250 Mg Tablet, 250 MG PO .ZPACK DIRECTED, #6 TAB TAKE 500 MG (2 TABS) THE FIRST DAY THEN 250 MG (1 TAB) DAYS 2-5 Prov:MARY ANNE DIAZ DO 06/05/18 Hydrocodone/Acetaminophen (Belle 5-325 Tablet) 1 Each Tablet, 1 TAB PO Q6H PRN for PAIN, #10 TAB Prov:MARY ANNE DIAZ DO 06/05/18 Ibuprofen* (Ibuprofen*) 600 Mg Tablet, 600 MG PO Q6, #60 TAB 0 Refills Prov:KLAUDIA ZENDEJAS MD 04/28/18 Reported Medications Ferrous Sulfate (Ferrous Sulfate) 1 Gm Powder, 1 GM MC 01/18/13 Vit-Iron Fumarate-FA ( Tablet) 1 Each Tablet, 1 EACH PO 01/18/13 Current Medications IV Flush (NS 3 ml) 3 ml PER PROTOCOL IV ; Start 06/13/18 at 00:30 Ondansetron HCl (Zofran Inj) 4 mg Q6H PRN IV NAUSEA AND/OR VOMITING; Start 06/13/18 at 00:30 Famotidine (Pepcid Iv) 20 mg Q12 IV Last administered on 06/15/18at 08:37; Admin Dose 20 MG; Start 06/13/18 at 09:00 Piperacillin Sod/ Tazobactam Sod 100 ml @ 200 mls/hr Q6H IVPB Last administered on 06/15/18at 05:31; Admin Dose 200 MLS/HR; Start 06/13/18 at 00:30 Morphine Sulfate (morphine SULFATE (PF)) 2 mg Q4H PRN IV SEVERE PAIN LEVEL 7-10 Last administered on 06/15/18at 09:03; Admin Dose 2 MG; Start 06/13/18 at 03:37 Sodium Chloride 1,000 ml @ 80 mls/hr [id number] IV Last administered on 06/15/18at 10:20; Admin Dose 80 MLS/HR; Start 06/14/18 at 10:00 Potassium Chloride 100 ml @ 50 mls/hr Q2H IVPB Last administered on 06/15/18at 11:59; Admin Dose 50 MLS/HR; Start 06/15/18 at 11:00; Stop 06/15/18 at 14:59 Meds reviewed: Yes Allergies Coded Allergies: No Known Drug Allergies (Verified Allergy, Unknown, 04/27/18) Allergies Reviewed: Yes Labs/Studies Labs Reviewed: Reviewed by anesthesiologist Result Diagram: 06/15/18 0433 06/15/18 0433 Laboratory Tests 06/15/18 04:33 test: Negative Pre-procedure Exam Last vitals Vital Signs Date Temp Pulse Resp B/P (MAP) Pulse Ox O2 O2 Flow FiO2 Time Delivery Rate 06/15/18 100.8 118 16 105/63 100 Room Air 00:55 (77) Airway: Adequate mouth opening, Adequate thyromental dist Mallampati: Mallampati II Teeth: Normal Lung: Normal Heart: Normal ASA Physical Status ASA physical status: 1 Emergency: None Planned Anesthetic General/MAC: ETT Nerve block: TAP (bilateral) Pre-operative Attestations Prior to commencing anesthesia and surgery, the patient was re-evaluated, there was verification of: *The patient's identity *The results of appropriate recent lab work and preoperative vital signs *The above evaluation not changing prior to induction *Anesthetic plan, risk benefits, alternative and complications discussed with patient/family; questions answered; patient/family understands, accepts and wishes to proceed. MARLEY LOPEZ Jun 15, 2018 13:20
--- NOTE | 2018-06-15 13:52 | PN ---
Date/Time of Note Date/Time of Note DATE: 06/15/18 TIME: 13:49 Assessment/Plan Lines/Catheters IV [facility] Type (from [facility]): Peripheral IV Assessment/Plan Chief Complaint/Hosp Course 1. Cholelithiasis, cholecystitis: HIDA+ -Antibiotics -OR 2. Abdominal pain: Likely 2/2 #1 -Pain management 3. Nausea vomiting: Improving -Antiemetics as needed 4. Leukocytosis: 2/2 #1: Improving -As above 5. Microcytic hypochromic anemia: -Monitor and transfuse as needed 6. Thrombocytosis: -Treat infections -Trend Thank you Subjective 24 Hr Interval Summary Right upper quadrant abdominal pain improving. HIDA noted. Low-grade fever. Tachycardia. No fevers, chills, sob, congested cough, cp, palpitations, ho, dizziness, nausea, vomiting, diarrhea, dysuria. Exam/Review of Systems Vital Signs Vitals Vital Signs Date Temp Pulse Resp B/P (MAP) Pulse Ox O2 O2 Flow FiO2 Time Delivery Rate 06/15/18 100.8 118 16 105/63 100 Room Air 00:55 (77) Intake and Output 06/14/18 06/14/18 06/15/18 1414:59 22:59 06:59 IntakeIntake Total 600 ml 1090 ml 840 ml OutputOutput Total 680 ml BalanceBalance 600 ml 410 ml 840 ml Exam Free Text/Dictation Constitutional: alert, oriented, well developed Psych: nl mood/affect; No anxiety Head: normocephalic, atraumatic Eyes: nl conjunctiva, EOMI, nl sclera; No icteric ENMT: nl lips & teeth Neck: supple; No jvd Respiratory: normal air movement; No congested cough, No labored breathing Cardiovascular: regular rate and rhythm, nl pulses; No edema Gastrointestinal: soft, distended (Minimal), tender (Right upper quadrant) Genitourinary - Female: nl external genitalia Musculoskeletal: nl extremities to inspection, nl gait and stance, muscle tone Extremities: normal pulses; No edema Neurological: nl mental status, nl speech, nl strength Skin: No rash or lesions Results Result Diagram: 06/15/18 0433 06/15/18 0433 JEAN STEPHENSON MD Jun 15, 2018 13:52
[2018-06-15] MEDS ORDERED: PROPOFOL 20 ML ONE (13:54)
[2018-06-15] MEDS ORDERED: MIDAZOLAM 1 MG/ML 2 ML INJ ONE (13:54)
[2018-06-15] MEDS ORDERED: ROPIVACAINE 0.5 % 30 ML VIAL ONE (13:58)
[2018-06-15] MEDS ORDERED: METOCLOPRAMIDE 10 MG INJ ONE (13:58)
[2018-06-15] MEDS ORDERED: ONDANSETRON 4 MG INJ ONE (13:58)
[2018-06-15] MEDS ORDERED: DIPHENHYDRAMINE 50 MG INJ IV PRN (14:30)
[2018-06-15] MEDS ORDERED: ONDANSETRON 4 MG INJ IV PRN ×2 (14:30→15:30)
[2018-06-15] MEDS ORDERED: MEPERIDINE 25 MG INJ IV PRN (14:30)
[2018-06-15] MEDS ORDERED: KETOROLAC 30 MG INJ IV PRN (14:30)
[2018-06-15] MEDS ORDERED: HYDROmorphONE 1 MG/5 ML IV SYRINGE IV PRN ×2 (14:30)
[2018-06-15] MEDS ORDERED: KETOROLAC 30 MG INJ ONE (15:00)
--- NOTE | 2018-06-15 15:15 | OPR ---
Date/Time of Note Date/Time of Note DATE: 06/15/18 TIME: 15:11 Operative Report Free Text/Dictation Preoperative Diagnosis: Symptomatic cholelithiasis Acute cholecystitis with positive HIDA Postoperative Diagnosis: Symptomatic cholelithiasis Abnormal liver color Acute cholecystitis Operation(s) Performed: 1. 3 port laparoscopic cholecystectomy 2. Laparoscopic liver wedge resection biopsy 3. ICG (indigocarmine green) florescence cholangiography 4. Local anesthetic injection, [id number] Surgeon: Jean Stephenson MD Creative Manager: Danitza Bustos NP Anesthesia: general, local, & regional Anesthesiologist: Micaela Edward MD Estimated Blood Loss: Less than 10 ml's Specimens: Gallbladder Liver Tubes/Drains: None Complications: None Pt Condition Post Procedure: stable Disposition: PACU Indications: 22-year-old female with gallstones and abdominal pain here for cholecystectomy. Risks include but are not limited to bleeding, infection, abscess, seroma, damage to intestines, damage to the liver, damage to biliary tree, hernia formation, chronic pain, biloma, need for reoperations or further surgeries, MT, stroke, PE, DVT, pneumonia, organ failures, or even . Procedure Description: Patient was brought and placed supine on the operating table SCDs were placed, preoperative antibiotics were administered, all pressure points were well- padded, and after induction of anesthesia patient was prepped and draped in usual sterile fashion and timeout was performed. Incision was made in the supraumbilical region, Veress was safely inserted, and after a negative SIP test, abdomen was insufflated to 15mmHg. Veress was removed and 5mm port was safely inserted. Laparoscopy was performed with a 5 mm 30 scope. No injuries were identified. The liver looks somewhat abnormal color. The gallbladder is distended and thickened with evidence of inflammation and infection. 12 mm port is placed in subxiphoid under direct visualization followed by another 5 mm port in the right upper quadrant. All port sites were injected with quarter percent Marcaine with epi and 1% lido suzie prior to any incisions. Patient was placed in reverse Trendelenburg and right side up on gallbladder was retracted superolaterally. The gallbladder was large and distended. Using electrocautery and blunt dissection I was able to identify the cystic artery and cystic duct. The duct tapered into the gallbladder. Full critical angle view was identified. ICG fluorescence cholangiography was performed identifying the common bile duct with some contrast into the cystic duct. This confirmed our anatomy further. There is bile in the small bowel. Both structures were clipped twice proximally and once distally and transected. The gallbladder was taken off the liver with electrocautery. Hemostasis was obtained. Gallbladder was placed in an Endo Catch bag and removed through the subxiphoid port site which had to be enlarged to allow extraction of a thickened large distended gallbladder. There was complete hemostasis. Due to the abnormality of the liver, decision was made to perform liver wedge resection which was done with electrocautery and scissor with complete hemostasis right after. The specimen was sent to pathology for further evaluation. 12 mm made port site fascia was closed with Endo Close of an 0 Vicryl in a [id number] manner. Ports and CO2 were removed under direct visualization. Next complete hemostasis. Wounds were thoroughly irrigated skin was closed with 4-0 Monocryl in subcuticular fashion. Dermabond was applied. Patient was extubated and transferred to recovery room in stable condition and all counts were correct and the end of the operation 2. JEAN STEPHENSON MD Jun 15, 2018 15:15
[2018-06-15] MEDS ORDERED: ACETAMINOPHEN 325 MG TAB PO PRN (15:30)
[2018-06-15] MEDS: HYDROmorphONE 1 MG/5 ML IV SYRINGE IV PRN ×2 (15:35→15:43)
--- NOTE | 2018-06-15 15:58 | PAC ---
Date/Time of Note Date/Time of Note DATE: 06/15/18 TIME: 15:58 Post-Anesthesia Notes Post-Anesthesia Note Last documented vital signs Vital Signs Date Temp Pulse Resp B/P (MAP) Pulse Ox O2 O2 Flow FiO2 Time Delivery Rate 06/15/18 99.2 15:22 06/15/18 99.2 96 18 93/51 (65) 98 Mask 15:17 Activity: WNL Respiratory function: WNL Cardiovascular function: WNL Mental status: Baseline Pain reasonably controlled: Yes Hydration appropriate: Yes Nausea/Vomiting absent: No ESHA VARGAS MD Jun 15, 2018 15:58
[2018-06-15] MEDS: HYDROmorphONE 0.5 MG/0.5 ML SYG IV PRN ×2 (17:18→23:49)
[2018-06-15] MEDS ORDERED: IBUPROFEN 600 MG TAB PO PRN (19:00)
[2018-06-16 00:06] VITALS: BP 118/79; PULSE 100; RESP 18
[2018-06-16] MEDS: HYDROmorphONE 0.5 MG/0.5 ML SYG IV PRN (04:48)
[2018-06-16] MEDS: PIPER-TAZO 3.375 GM IV (PMX) 100 ML IVPB SCH ×3 (05:30→18:27)
[2018-06-16 08:26] VITALS: BP 109/69; PULSE 111; RESP 18
[2018-06-16] MEDS: HYDROCODONE/APAP (5/325) TAB PO PRN ×2 (09:43→18:29)
[2018-06-16] MEDS: FAMOTIDINE 20 MG INJ IV SCH ×2 (09:43→20:18)
--- NOTE | 2018-06-16 10:04 | PN ---
Date/Time of Note Date/Time of Note DATE: 06/16/18 TIME: 10:01 Assessment/Plan VTE Prophylaxis Risk score (from Ns)>0 risk: 2 SCD applied (from Ns): Yes Pharmacological prophylaxis: NA/contraindicated Pharm contraindication: low risk/ambulating Lines/Catheters IV Catheter Type (from Nrsg): Peripheral IV Assessment/Plan Hospital Course SUBJECTIVE: Status post laparoscopic cholecystectomy. Having incisional pain 9 out of 10, with less appetite and tolerates with minimal diet. Patient with no fevers or leukocytosis. OBJECTIVE: Vital signs-see below PHYSICAL EXAM: Constitutional: Well-developed, adequately built, lying in bed comfortably. Psych: nl mood/affect, no complaints Head: atraumatic, normocephalic Eyes: nl conjunctiva, nl sclera ENMT: mucosa pink and moist, nl external ears & nose Neck: non-tender, supple Respiratory: clear to auscultation, normal air movement Cardiovascular: nl pulses, regular rate and rhythm Gastrointestinal: Tenderness to RUQ. No rebound tenderness. Abdomen soft, bowel sounds active in all 4 quadrants. Musculoskeletal/extremities: nl extremities to inspection, motor strength equal bilaterally, no focal deficit. Normal pulses,no cyanosis, no edema. Neurological: Alert oriented 3,nl speech, nl strength Skin: nl turgor ASSESSMENT/PLAN: 22-year-old female who is 6 weeks /vaginal delivery, presenting with 2-day duration of right upper quadrant abdominal pain, found to have acute cholecystitis. 1. Acute calculus cholecystitis with cystic duct obstruction. -Status post laparoscopic cholecystectomy: No evidence of perforation -Continue ABX-we will de-escalate soon. -Pain management -Diet advancement per surgery 2. Sepsis Source: Intra-abdominal with a #1 -Resolved. DVT prophylaxis: SCDs PUD prophylaxis: Pepcid CODE STATUS: Full code Diet: N.p.o. Disposition: Overall, patient doing fairly well postoperatively. She has lots of incisional pain. She is tolerating only very minimal amount of clear diet. At this time, from a medical standpoint, recommend keeping patient in-house for another 24 hours for pain management, slow advancement of diet, encouraging ambulation, incentive spirometry and likely DC planning in a.m if stable from a surgical point. Patient was seen in collaboration with Dr. Flores. Result Diagram: 1/9/19 0450 1/9/19 0450 Results 24hrs Laboratory Tests Test 06/16/18 04:50 White Blood Count 9.5 # Red Blood Count 3.82 L Hemoglobin 9.8 L Hematocrit 30.7 L Mean Corpuscular Volume 80.4 L Mean Corpuscular Hemoglobin 25.7 L Mean Corpuscular Hemoglobin Concent 31.9 L Red Cell Distribution Width 16.9 H Platelet Count 511 H Mean Platelet Volume 9.0 Immature Granulocytes % 0.300 Neutrophils % 65.6 Lymphocytes % 26.1 Monocytes % 6.0 Eosinophils % 1.8 Basophils % 0.2 Nucleated Red Blood Cells % 0.0 Immature Granulocytes # 0.030 Neutrophils # 6.2 Lymphocytes # 2.5 Monocytes # 0.6 Eosinophils # 0.2 Basophils # 0.0 Nucleated Red Blood Cells # 0.0 Sodium Level 138 Potassium Level 3.7 Chloride Level 109 Carbon Dioxide Level 22 Anion Gap 7 Blood Urea Nitrogen 6 L Creatinine 0.46 Est Glomerular Filtrat Rate mL/min > 60 Glucose Level 78 Calcium Level 8.2 L Exam/Review of Systems Vital Signs Vitals Vital Signs Date Temp Pulse Resp B/P (MAP) Pulse Ox O2 O2 Flow FiO2 Time Delivery Rate 06/16/18 98.4 111 18 109/69 95 Room Air 08:26 (82) Intake and Output 06/15/18 06/15/18 06/16/18 1515:00 23:00 07:00 IntakeIntake Total 1100 ml 1280 ml OutputOutput Total 10 ml BalanceBalance 1090 ml 1280 ml Medications Medications Current Medications IV Flush (NS 3 ml) 3 ml PER PROTOCOL IV ; Start 06/13/18 at 00:30 Famotidine (Pepcid Iv) 20 mg Q12 IV Last administered on 06/16/18at 09:43; Admin Dose 20 MG; Start 06/13/18 at 09:00 Piperacillin Sod/ Tazobactam Sod 100 ml @ 200 mls/hr Q6H IVPB Last administered on 06/16/18at 05:30; Admin Dose 200 MLS/HR; Start 06/13/18 at 00:30 Sodium Chloride 1,000 ml @ 80 mls/hr [id number] IV Last administered on 06/15/18at 20:43; Admin Dose 80 MLS/HR; Start 06/14/18 at 10:00 Ondansetron HCl (Zofran Inj) 4 mg Q6H PRN IV NAUSEA AND/OR VOMITING; Start 06/15/18 at 15:30 Hydromorphone HCl (Dilaudid) 0.5 mg Q4H PRN IV BREAKTHROUGH PAIN Last administered on 06/16/18at 04:48; Admin Dose 0.5 MG; Start 06/15/18 at 15:30 Acetaminophen (Tylenol Tab) 650 mg Q6H PRN PO MILD PAIN(1-3)OR ELEVATED TEMP; Start 06/15/18 at 15:30 Ibuprofen (Motrin) 600 mg Q6H PRN PO PAIN LEVEL 1-5; Start 06/15/18 at 19:00 Acetaminophen/ Hydrocodone Bitart ([place] (5/325)) 1 tab Q6H PRN PO PAIN LEVEL 6-10 Last administered on 06/16/18at 09:43; Admin Dose 1 TAB; Start 06/15/18 at 15:30 KELLY BUSTOS NP Jun 16, 2018 10:04
--- NOTE | 2018-06-16 10:23 | PN ---
Date/Time of Note Date/Time of Note DATE: 06/16/18 TIME: 10:21 Assessment/Plan Lines/Catheters IV Catheter Type (from Nrs): Peripheral IV Assessment/Plan Assessment/Plan 1. Cholelithiasis, cholecystitis, abnormal liver color: Status post laparoscopic cholecystectomy with liver wedge biopsy -IS -ambulate -ice pack to abdominal wall -advance diet as tolerated 2. Abdominal pain: Likely 2/2 #1 -Pain management 3. Nausea vomiting: Improving -Antiemetics as needed 4. Leukocytosis: 2/2 #1: Resolved -As above 5. Microcytic hypochromic anemia: -Monitor and transfuse as needed 6. Thrombocytosis: -Trend -Further workup if persistent Thank you. Patient seen and examined in collaboration with Dr. Deshawn Willson. Subjective 24 Hr Interval Summary Status post laparoscopic cholecystectomy. No fevers, chills, sob, congested cough, cp, palpitations, ho, dizziness, n/v/d/dysuria. Some abdominal pain. Exam/Review of Systems Vital Signs Vitals Vital Signs Date Temp Pulse Resp B/P (MAP) Pulse Ox O2 O2 Flow FiO2 Time Delivery Rate 06/16/18 98.4 111 18 109/69 95 Room Air 08:26 (82) Intake and Output 06/15/18 06/15/18 06/16/18 1414:59 22:59 06:59 IntakeIntake Total 1000 ml 1100 ml 1280 ml OutputOutput Total 10 ml BalanceBalance 1000 ml 1090 ml 1280 ml Exam Free Text/Dictation Constitutional: alert, oriented, well developed Psych: nl mood/affect; No anxiety Head: normocephalic, atraumatic Eyes: nl conjunctiva, EOMI, nl sclera; No icteric ENMT: nl lips & teeth Neck: supple; No jvd Respiratory: normal air movement; No congested cough, No labored breathing Cardiovascular: regular rate and rhythm, nl pulses; No edema Gastrointestinal: soft, distended (Minimal), tender (kevin-incisional, incision sites dry without drainage/bruising/discoloration) Genitourinary - Female: nl external genitalia Musculoskeletal: nl extremities to inspection, nl gait and stance, muscle tone Extremities: normal pulses; No edema Neurological: nl mental status, nl speech, nl strength Skin: No rash or lesions Results Result Diagram: 06/16/18 0450 06/16/18 0450 YOSELIN RECIO NP Jun 16, 2018 10:23
[2018-06-16] MEDS: SOD CHLORIDE 0.9% 1,000 ML IV SCH (12:00)
[2018-06-16 14:29] VITALS: BP 116/80; PULSE 92; RESP 18
[2018-06-16 20:30] VITALS: BP 120/78; PULSE 96; RESP 20
[2018-06-17] MEDS: HYDROmorphONE 0.5 MG/0.5 ML SYG IV PRN (01:12)
[2018-06-17] MEDS: SOD CHLORIDE 0.9% 1,000 ML IV SCH ×2 (01:12→13:00)
[2018-06-17] MEDS: PIPER-TAZO 3.375 GM IV (PMX) 100 ML IVPB SCH ×3 (01:12→12:16)
[2018-06-17 01:40] VITALS: BP 123/79; PULSE 98; RESP 18
[2018-06-17] MEDS: HYDROCODONE/APAP (5/325) TAB PO PRN ×2 (04:37→12:16)
[2018-06-17 07:53] VITALS: BP 113/70; PULSE 91; RESP 17
[2018-06-17] MEDS: FAMOTIDINE 20 MG INJ IV SCH (08:16)
--- NOTE | 2018-06-17 09:40 | PN ---
Date/Time of Note Date/Time of Note DATE: 06/17/18 TIME: 09:34 Assessment/Plan Lines/Catheters IV Catheter Type (from [facility]): Peripheral IV Felix in Place (from [facility]): No Assessment/Plan Assessment/Plan 1. Cholelithiasis, cholecystitis, abnormal liver color: Status post laparoscopic cholecystectomy with liver wedge biopsy -IS -ambulate -ice pack to abdominal wall -advance diet as tolerated -may be discharged per medical team with follow up in office in 1-2 weeks 2. Abdominal pain: Likely 2/2 #1 resolved -Pain management 3. Nausea vomiting: Improving -Antiemetics as needed 4. Leukocytosis: 2/2 #1: Resolved -As above 5. Microcytic hypochromic anemia: -Monitor and transfuse as needed 6. Thrombocytosis: -Trend -Further workup if persistent Thank you. Patient seen and examined in collaboration with Dr. Deshawn Willson Subjective 24 Hr Interval Summary Feels well. No fevers, chills, sob, congested cough, cp, palpitations, ho, dizziness, n/v/d/dysuria. Tolerating diet. Exam/Review of Systems Vital Signs Vitals Vital Signs Date Temp Pulse Resp B/P (MAP) Pulse Ox O2 O2 Flow FiO2 Time Delivery Rate 06/17/18 98.7 91 17 113/70 95 07:53 (84) 06/16/18 Room Air 14:29 Intake and Output 06/16/18 06/16/18 06/17/18 1515:00 23:00 07:00 IntakeIntake Total 540 ml 910 ml 1240 ml BalanceBalance 540 ml 910 ml 1240 ml Exam Free Text/Dictation Constitutional: alert, oriented, well developed Psych: nl mood/affect; No anxiety Head: normocephalic, atraumatic Eyes: nl conjunctiva, EOMI, nl sclera; No icteric ENMT: nl lips & teeth Neck: supple; No jvd Respiratory: normal air movement; No congested cough, No labored breathing Cardiovascular: regular rate and rhythm, nl pulses; No edema Gastrointestinal: soft, distended (Minimal), non tender , incision sites dry without drainage/bruising/discoloration Genitourinary - Female: nl external genitalia Musculoskeletal: nl extremities to inspection, nl gait and stance, muscle tone Extremities: normal pulses; No edema Neurological: nl mental status, nl speech, nl strength Skin: No rash or lesions Results Result Diagram: 06/16/1844906/16/18449 YOSELIN RECIO NP Jun 17, 2018 09:40
--- NOTE | 2018-06-17 12:46 | PDOCDIS ---
Discharge Instructions CONDITION [id number] Patient Condition: [id number] Stable HOME CARE INSTRUCTIONS: [id number] Diet Instructions: [id number] Low Fat /Cholesterol [id number] Special Diet: Mbkdh0c Low Chol/Low fat ACTIVITY: [id number] Activity Restrictions: [id number] Slowly Increase Activity Rest between Activity [id number] Bathing Restrictions: [id number] Shower FOLLOW UP/APPOINTMENTS Follow-up Plan Follow-up with Dr. Willson in 1-2 weeks in his clinic [id number] [place] [address] [place] [id number] Office Follow-up with primary care physician in 1 week Post operative Instructions *Do not lift anything more than 25 pounds for 6 to 8 weeks *Do not swim or take hot tub bath for 2weeks *Remove dressing and May shower-Use mild soap around site and pat dry *If you notice any oozing, bleeding or other drainage or having fever or chills from site please contact Surgeon's office-If unable to get office, you may go to nearest emergency room KELLY BUSTOS NP Jun 17, 2018 12:46
[2018-06-17] MEDS ORDERED: DOCU-144 PO (12:47)
--- NOTE | 2018-06-17 13:40 | DS ---
Date/Time of Note Date/Time of Note DATE: 06/17/18 TIME: 13:39 Discharge Summary Admission/Discharge Info Admit Date/Time Jun 12, 2018 at 23:01 Discharge Date/Time Discharge Diagnosis 1. Acute calculus cholecystitis. Status post lap scopic cholecystectomy 2. Status post sepsis with #1. Patient Condition: Stable Consults Dr. Willson, surgeon Procedures 06/13/2018. HIDA scan. IMPRESSION: Lack of normal gallbladder visualization consistent with cystic duct obstruction and acute cholecystitis with patency of the common bile duct. Hospital Course 22-year-old female who is 6 weeks /vaginal delivery, presenting with 2-day duration of right upper quadrant abdominal pain, found to have acute calculus cholecystitis with sepsis. Patient was kept n.p.o., given IV fluids and antibiotics. Patient underwent laparoscopic cholecystectomy on 06/15/2018. There was no evidence of perforation. Patient did well postoperatively. There was no postoperative fevers or leukocytosis. She was able to tolerate diet and activities well. At this time, patient is medically stable and per surgical standpoint she is cleared to go home with outpatient follow-up. Approximately 60 m spent on coordinating the discharge on this patient. Patient was seen in collaboration with Dr. Jeffrey Munoz Active Scripts Docusate Sodium* (Colace*) 100 Mg Capsule, 100 MG PO BID, #60 CAP Prov:KELLY BUSTOS V. ENTRY SPECIALIST 06/17/18 Hydrocodone/Acetaminophen ([place] 5-325 Tablet) 1 Each Tablet, 1 TAB PO Q6H PRN for PAIN, #10 TAB Prov:MARY ANNE DIAZ DO 06/05/18 Reported Medications Vit-Iron Fumarate-FA ( Tablet) 1 Each Tablet, 1 EACH PO 01/18/13 Discontinued Reported Medications Ferrous Sulfate (Ferrous Sulfate) 1 Gm Powder, 1 GM MC 01/18/13 Discontinued Scripts Neomycin/Polymyxin/Hydrocort* (Cortisporin* Otic) 10 Ml Susp, 4 DROP BOTH EARS QID for 7 Days, EA Prov:MARY ANNE DIAZ DO 06/05/18 Azithromycin* (Zithromax*) 250 Mg Tablet, 250 MG PO .ZPACK DIRECTED, #6 TAB TAKE 500 MG (2 TABS) THE FIRST DAY THEN 250 MG (1 TAB) DAYS 2-5 Prov:MARY ANNE DIAZ DO 06/05/18 Ibuprofen* (Ibuprofen*) 600 Mg Tablet, 600 MG PO Q6, #60 TAB 0 Refills Prov:KLAUDIA ZENDEJAS MD 04/28/18 Follow-up Plan Follow-up with Dr. Willson in 1-2 weeks in his clinic [address] [place] [address] [address] [place] [address] Office Follow-up with primary care physician in 1 week Post operative Instructions *Do not lift anything more than 25 pounds for 6 to 8 weeks *Do not swim or take hot tub bath for 2weeks *Remove dressing and May shower-Use mild soap around site and pat dry *If you notice any oozing, bleeding or other drainage or having fever or chills from site please contact Surgeon's office-If unable to get office, you may go to nearest emergency room Primary Care Provider MD JULI Bowie VIDYA V. NP Jun 17, 2018 13:40
[2018-06-17 14:00] VITALS: BP 121/78; PULSE 84; RESP 17
== END 2018-06-17 17:25 | disposition home or self-care (01) | DRG 854 ==
LOC: FTE 18:51 → MS1 23:01
PROVIDERS: ADMIT Internal Medicine; ATTEND Internal Medicine
PROC: 0FB04ZZ Excision of Liver, Percutaneous Endoscopic Approach (ICD-10-PCS; 2018-06-15)
PROC: 0FT44ZZ Resection of Gallbladder, Percutaneous Endoscopic Approach (ICD-10-PCS; principal; 2018-06-15 14:00)
DX: A41.9 Sepsis, unspecified organism (principal); K80.01 Calculus of gallbladder with acute cholecystitis with obstruction; N39.0 Urinary tract infection, site not specified; K76.89 Other specified diseases of liver; D50.9 Iron deficiency anemia, unspecified; D47.3 Essential (hemorrhagic) thrombocythemia
CPT/HCPCS: 36415; 74176; 76705; 78226; 80048; 80053; 81001; 81025; 83036; 83605; 83690; 83735; 84100; 85025; 87086; 88304; 88307; 88313; A9537; J0131; J1170; J1885; J2175; J2250; J2274; J2405; J2543; J2765; J2795; J3480; J7030; J7040; J7042